=== PATIENT | female | born 1970 | race Caucasian/White ===

== ENCOUNTER → 2020-01-22 | Outpatient (CLI) | payer OTHER | LOC: M.LAB 16:32 | PROVIDERS: ATTEND Surgery | DX: Z01.812 Encounter for preprocedural laboratory examination (principal); Z11.59 Encounter for screening for other viral diseases; K80.20 Calculus of gallbladder without cholecystitis without obstruction ==

== ENCOUNTER → 2020-01-29 | Day surgery (SDC) | payer OTHER ==
[~2020-01-29] MED LIST: ESTRACE1 MG PO; NORCO 5-325 TA1 EAC2 PO; PROZAC40 MG PO
--- NOTE | ~2020-01-29 | OP ---
[facility] [address] [place] [address] OPERATIVE REPORT Name: KOSTA PARISI Room: [facility]#: [id number] Admission: 01/29/20 Attend Phys: Calos Mckeon Discharge: Date of : 70 Report #: [id number] THIS REPORT FOR: //name// cc: ANJUM SAHA APRN, STEFFANY APRN ~ THIS REPORT FOR: //name// CC: Calos SAHA DATE OF SERVICE: 01/29/2020 PREOPERATIVE DIAGNOSIS: Symptomatic cholelithiasis. POSTOPERATIVE DIAGNOSIS: Symptomatic cholelithiasis. OPERATION: Laparoscopic cholecystectomy. SURGEON: Calos Mckeon MD ANESTHESIA: General. ESTIMATED BLOOD LOSS: Minimal. SPECIMEN: Gallbladder. DESCRIPTION OF PROCEDURE: After informed consent was obtained, the patient was brought to the operating room and placed supine. SCDs were placed and working, preoperative antibiotics were administered, general anesthesia was induced. The abdomen was prepped and draped in the usual sterile fashion. A 10 mm incision was made below the umbilicus. Fascia was incised and a trocar was placed. Pneumoperitoneum was established. Three right upper quadrant 5 mm ports were placed. Gallbladder was grasped at the fundus and retracted cephalad. Infundibulum was grasped and retracted laterally. I identified the cystic duct and cystic artery as well as the cystic plate. Cystic duct and artery were clipped and ligated leaving 2 clips on the remaining duct and one on the remaining artery. Gallbladder was then taken off the liver bed with electrocautery. It was placed into an Endopouch and removed. Fascia was then closed with a kvumib-mg-gsvum 0 Vicryl. Skin was closed with 4-0 Monocryl. Incisions were sealed with Dermabond. COMPLICATIONS: [place] [address] OPERATIVE REPORT Name: KOSTA PARISI Pia Room: [facility]#: [id number] Admission: 01/29/20 Attend Phys: Calos Mckeon Discharge: Date of : 70 Report #: [id number] DISPOSITION: The patient was taken to recovery in satisfactory condition. By: [id number] Mckeon MD /freddy
[2020-01-29 09:07] LABS: CALCIUM 8.4 mg/dL (8.5-10.1); CREATININE 0.8 mg/dL (0.6-1.3); POTASSIUM 3.7 mmol/L (3.5-5.1)
[2020-01-29 09:12] LABS: ALBUMIN 3.6 g/dL (3.4-5.0); TOTAL BILIRUBIN 0.8 mg/dL (<0.1-1.0); TOTAL PROTEIN 7.1 g/dL (6.4-8.2)
--- NOTE | 2020-01-31 17:06 | PATH ---
[address] [address] PATHOLOGY RPT PROCEDURE Name: MARISSA PARISI Room: [facility]#: [id number] Admission: 01/29/20 Date of : 70 Discharge: Report #: [id number] Path Case #: [id number] [facility] Accession Number: [id number] . 01 Material submitted: . gallbladder - GALLBLADDER . 01 Clinical history: . CALCULUS OF GALLBLADDER LAPARSCOPIC CHOLECYSTECTOMY . 02 Diagnosis: Gallbladder: - Chronic cholecystitis and cholelithiasis with benign sentinel lymph node showing lipophagic reaction. (JOHNNA/db; 01/31/2020) LBQ 01/31/2020 1504 Local . 02 Electronically signed: . Dion East MD, Pathologist NPI- [id number] . 01 Gross description: . The specimen is received in formalin, labeled "Marissa Parisi, gallbladder". Received is an intact gallbladder measuring 10.0 x 3.1 x 3.1 cm in greatest dimensions, displaying a blue-nogueira to bile-stained serosal surface. Opening the specimen reveals a velvety, bile-stained mucosa with a gallbladder wall thickness of 0.1 cm. Calculi are present displaying a light brown and multifaceted appearance, and no other mural masses or lesions are noted grossly. At the proximal margin, a single lymph node is identified measuring 1.1 cm in maximum dimensions. [employer] sections, to include the proximal margin and bisected lymph node, are submitted in cassette A1. (CAA; 01/30/2020) QA/QA 01/31/2020 1502 Local . 02 Pathologist provided ICD-10: K80.10 . 02 CPT . 469878 Specimen Comment: A courtesy copy of this report has been sent to [phone] Specimen Comment: [phone] Specimen Comment: Report sent to / DR SAHA Performed at: [address] [facility] [address] [id number] MD Lars Lobo MD Phone: [phone] [place] [address] PATHOLOGY RPT PROCEDURE Name: MARISSA PARISI Room: [facility] Paulette#: [id number] Admission: 01/29/20 Date of : 70 Discharge: Report #: [id number] Path Case #: [id number] Performed at: 02 [facility] Humberto Denson [address], [place] [id number] MD Dion East MD Phone: [phone]
== END | disposition home or self-care (01) ==
LOC: M.SUR 08:32
PROVIDERS: ATTEND Surgery
DX: K80.10 Calculus of gallbladder with chronic cholecystitis without obstruction (principal); Z79.899 Other long term (current) drug therapy; Z98.890 Other specified postprocedural states